=== PATIENT | female | born 1985 | race Caucasian/White ===

== ENCOUNTER 2018-06-23 16:55 | Emergency (ER) | payer OTHER ==
[~2018-06-23] VITALS: Ht 162.6 cm; Wt 89.8 kg
[2018-06-23] MEDS ORDERED: COMBIVENT RESPIM4 GM INH (17:10)
[2018-06-23] MEDS ORDERED: XARELTO20 MG PO (17:10)
[2018-06-23] MEDS ORDERED: BUSP10 PO (17:10)
[2018-06-23] MEDS ORDERED: TRAZ50 PO (17:11)
[2018-06-23] MEDS ORDERED: CETI5 PO (17:11)
[2018-06-23] MEDS ORDERED: PENVK500 PO (17:40)
== END 2018-06-23 17:54 | disposition home or self-care (01) ==
LOC: ER 16:55
DX: K04.7 Periapical abscess without sinus (principal); Z88.1 Allergy status to other antibiotic agents; Z79.899 Other long term (current) drug therapy
CPT/HCPCS: 64400; 99282-25

== ENCOUNTER 2020-05-24 10:28 | Emergency (ER) | payer OTHER ==
[~2020-05-24] VITALS: Ht 162.6 cm; Wt 89.8 kg
[~2020-05-24 10:28] MED LIST: BUSP10 PO; CETI5 PO; COMBIVENT RESPIM4 GM INH; PENVK500 PO; TRAZ50 PO; XARELTO20 MG PO
[2020-05-24 11:26] LABS: BASOPHILS ABSOLUTE AUTO 0.03 K/mm3 (0.00-0.23); BASOPHILS PERCENT AUTO 0 % (0-2); EOSINOPHILS ABSOLUTE AUTO 0.15 K/mm3 (0.00-0.68); EOSINOPHILS PERCENT AUTO 1 % (0-6); Hematocrit 40.8 % (33.0-51.0); IMMATURE GRAN PERCENT AUTO 1 % (0-1); LYMPHOCYTES ABSOLUTE AUTO 0.96 K/mm3 (0.84-5.20); LYMPHOCYTES PERCENT AUTO 5 % (21-46); MONOCYTES ABSOLUTE AUTO 1.96 K/mm3 (0.16-1.47); MONOCYTES PERCENT AUTO 11 % (4-13); Mean Corpuscular HGB 26.6 pg (26.0-34.0); Mean Corpuscular HGB Conc 31.9 g/dL (31.5-36.5); Mean Corpuscular Volume 83 fL (80-100); Mean Platelet Volume 9.3 fL (9.1-12.4); NEUTROPHILS ABSOLUTE AUTO 15.29 K/mm3 (1.96-9.15); NEUTROPHILS PERCENT AUTO 83 % (41-73); Platelet Count 300 K/mm3 (150-400); RDW Coefficient Variation 12.6 % (11.7-14.2); RDW Standard Deviation 38.3 fL (35.1-46.3); Red Blood Cell Count 4.89 M/mm3 (3.80-5.20); White Blood Cell Count 18.49 K/mm3 (4.00-11.30)
[2020-05-24 11:53] LABS: Alanine Aminotransfer (ALT/SGP 83 U/L (12-78); Albumin, Blood 2.9 g/dL (3.4-5.0); Albumin/Globulin Ratio 0.7 (0.8-1.8); Alk Phos 128 U/L (50-136); Anion Gap 9 mmol/L (6-16); Aspartate Aminotrans (AST/SGOT 50 U/L (12-37); Bilirubin, Total 0.5 mg/dL (0.1-1.0); Blood Urea Nitrogen 12 mg/dL (8-24); Bun/Creatinine Ratio 18.3 (12.0-20.0); CO2, Blood 23 mmol/L (21-32); Calcium, Blood 8.8 mg/dL (8.5-10.1); Chloride, Blood 103 mmol/L (98-108); Creatinine, Blood 0.65 mg/dL (0.40-1.00); Globulin, Blood 4.3 g/dL (2.2-4.0); Glomerular Filtration Rate >60 (60-); Glucose, Blood 132 mg/dL (70-99); Potassium, Blood 3.7 mmol/L (3.5-5.5); Sodium, Blood 135 mmol/L (136-145); Total Protein, Blood 7.2 g/dL (6.4-8.2)
[2020-05-24 12:06] LABS: Source, Urine Clean Catch
[2020-05-24 12:10] LABS: Appearance, Urine Hazy (Clear); Bilirubin, Urine Neg (Neg); Blood, Urine 2+ (Neg); Color, Urine Yellow (P-Yellow); Glucose Qualitative, Urine Neg (Neg); Ketones, Urine Neg (Neg); Leukocyte Esterase, Urine 3+ (Neg); Nitrite, Urine Pos (Neg); Protein, Urine Neg (Neg); Urobilinogen, Urine NORM (Normal)
[2020-05-24 12:35] LABS: White Blood Cells, Urine 50-100 /hpf (0-5)
[2020-05-24 12:36] LABS: Bacteria Many /hpf; Squamous Epithelial Cells Few /hpf (Few)
[2020-05-24] MEDS ORDERED: OXYC5 PO (12:49)
[2020-05-24] MEDS ORDERED: Bactrim Ds Tab1 EACH PO (12:49)
== END 2020-05-24 13:02 | disposition home or self-care (01) ==
LOC: ER 10:28
PROVIDERS: Emergency Medicine
DX: N12 Tubulo-interstitial nephritis, not specified as acute or chronic (principal); Z88.5 Allergy status to narcotic agent; Z88.1 Allergy status to other antibiotic agents; Z88.8 Allergy status to other drugs, medicaments and biological substances
CPT/HCPCS: 36415; 80053; 81001; 81025; 85025; 87077; 87086; 87186; 99283; A9270-GY

== ENCOUNTER 2023-05-11 17:50 | Emergency (ER) | payer OTHER ==
[~2023-05-11] VITALS: Ht 162.6 cm; Wt 86.2 kg
[~2023-05-11 17:50] MED LIST changes: +Bactrim Ds Tab1 EACH PO; +OXYC5 PO
[2023-05-11 18:35] VITALS: BP 139/88
== END 2023-05-11 20:41 | disposition home or self-care (01) ==
LOC: ER 17:50
DX: J45.909 Unspecified asthma, uncomplicated (principal); R60.0 Localized edema; M79.89 Other specified soft tissue disorders; Z86.711 Personal history of pulmonary embolism; Z86.718 Personal history of other venous thrombosis and embolism; Z88.8 Allergy status to other drugs, medicaments and biological substances; Z88.5 Allergy status to narcotic agent; Z88.1 Allergy status to other antibiotic agents; Z88.7 Allergy status to serum and vaccine; Z79.01 Long term (current) use of anticoagulants; Z79.899 Other long term (current) drug therapy
CPT/HCPCS: 93971; 99283-25; A9270

== ENCOUNTER 2023-08-19 09:10 | Emergency (ER) | payer OTHER ==
[~2023-08-19] VITALS: Ht 167.6 cm; Wt 72.6 kg
[2023-08-19] MEDS ORDERED: CEPH500 PO (12:29)
[2023-08-19] MEDS ORDERED: OXYC5 PO (12:29)
[2023-08-20 12:44] VITALS: BP 131/87
== END 2023-08-19 12:55 | disposition home or self-care (01) ==
LOC: ER 09:10
DX: S54.02XA Injury of ulnar nerve at forearm level, left arm, initial encounter (principal); S56.922A Laceration of unspecified muscles, fascia and tendons at forearm level, left arm, initial encounter; W26.0XXA Contact with knife, initial encounter; Z88.8 Allergy status to other drugs, medicaments and biological substances; Z88.1 Allergy status to other antibiotic agents; Z88.5 Allergy status to narcotic agent; Z88.7 Allergy status to serum and vaccine; Z79.899 Other long term (current) drug therapy; J45.909 Unspecified asthma, uncomplicated
CPT/HCPCS: 12004; 96372-59; 96374-59; 99283-25; A9270; J0690; J1885; J3010

== ENCOUNTER 2023-11-07 10:54 | Emergency (ER) | payer OTHER ==
[~2023-11-07] VITALS: Ht 165.1 cm; Wt 65.8 kg
[~2023-11-07 10:54] MED LIST changes: +CEPH500 PO
[2023-11-07 11:35] VITALS: BP 151/102
[2023-11-07] MEDS ORDERED: PENVK500 PO (11:38)
== END 2023-11-07 11:39 | disposition home or self-care (01) ==
LOC: ER 10:54
DX: K04.7 Periapical abscess without sinus (principal); Z88.1 Allergy status to other antibiotic agents; Z88.5 Allergy status to narcotic agent; Z88.7 Allergy status to serum and vaccine; Z79.01 Long term (current) use of anticoagulants; Z79.899 Other long term (current) drug therapy
CPT/HCPCS: 99282

== ENCOUNTER 2023-11-15 20:56 | Emergency (ER) | payer OTHER ==
[~2023-11-15] VITALS: Ht 162.6 cm; Wt 83.9 kg
[2023-11-15 21:01] VITALS: BP 134/86
== END 2023-11-15 21:45 | disposition home or self-care (01) ==
LOC: ER 20:56
DX: L23.7 Allergic contact dermatitis due to plants, except food (principal); J45.909 Unspecified asthma, uncomplicated; Z88.1 Allergy status to other antibiotic agents; Z88.5 Allergy status to narcotic agent; Z88.7 Allergy status to serum and vaccine; Z79.01 Long term (current) use of anticoagulants; Z79.899 Other long term (current) drug therapy
CPT/HCPCS: 96372; 99282-25; J3301

== ENCOUNTER 2024-04-29 05:24 | Emergency (ER) | payer OTHER ==
[~2024-04-29] VITALS: Ht 162.6 cm; Wt 82.5 kg
[~2024-04-29 05:24] MED LIST changes: +KETO10 PO; +SULTRIDS PO
[2024-04-29] MEDS ORDERED: ALBU90OI INH (05:56)
[2024-04-29] MEDS ORDERED: SULTRIDS PO (07:05)
[2024-04-29] MEDS ORDERED: Trimethoprim/Sulfamethoxazole DS Tab PO ONE (07:05)
[2024-04-29] MEDS ORDERED: PRED20 PO (07:05)
[2024-04-29] MEDS ORDERED: PredniSONE 20 MG Tab PO ONE (07:05)
[2024-04-29 07:35] VITALS: BP 130/79
== END 2024-04-29 07:25 | disposition home or self-care (01) ==
LOC: ER 05:24
DX: L03.115 Cellulitis of right lower limb (principal); B95.8 Unspecified staphylococcus as the cause of diseases classified elsewhere; L25.5 Unspecified contact dermatitis due to plants, except food; J45.909 Unspecified asthma, uncomplicated; Z88.1 Allergy status to other antibiotic agents; Z88.5 Allergy status to narcotic agent; Z88.7 Allergy status to serum and vaccine; Z79.899 Other long term (current) drug therapy
CPT/HCPCS: 87070; 87077; 87147; 87186; 87205; 99282; A9270; J7512

== ENCOUNTER 2024-08-23 02:24 | Emergency (ER) | payer OTHER ==
[~2024-08-23] VITALS: Ht 162.6 cm; Wt 78.0 kg
[~2024-08-23 02:24] MED LIST changes: +ALBU90OI INH; +PRED20 PO
[2024-08-23 02:42] VITALS: BP 152/75
[2024-08-23 03:05] LABS: Source, Urine Clean Catch
[2024-08-23 03:19] LABS: Bilirubin, Urine Neg (Neg); Blood, Urine 1+ (Neg); Glucose Qualitative, Urine Neg (Neg); Ketones, Urine Neg (Neg); Leukocyte Esterase, Urine 2+ (Neg); Nitrite, Urine Neg (Neg); Protein, Urine 1+ (Neg); Specific Gravity, Urine 1.025 (1.003-1.022); Urobilinogen, Urine NORM (Normal)
[2024-08-23 03:49] LABS: Appearance, Urine Hazy (Clear); Color, Urine Yellow (P-Yellow)
[2024-08-23 03:50] LABS: Bacteria Mod /hpf; Red Blood Cells, Urine 0-2 /hpf (0-2); Squamous Epithelial Cells Mod /hpf (Few)
[2024-08-23] MEDS ORDERED: Nitrofurantoin/Nitrofuran Mac 100 MG Cap PO ONE (04:25)
[2024-08-23] MEDS ORDERED: PredniSONE 20 MG Tab PO ONE (04:25)
[2024-08-23] MEDS ORDERED: Prednisone10 MG PO (04:29)
[2024-08-23] MEDS ORDERED: NITR100CA PO (04:29)
[2024-08-23] MEDS ORDERED: Phenazopyridine HCl 100 MG Tab PO ONE (04:30)
== END 2024-08-23 04:40 | disposition home or self-care (01) ==
LOC: ER 02:24
PROVIDERS: Emergency Medicine
DX: N39.0 Urinary tract infection, site not specified (principal); L23.7 Allergic contact dermatitis due to plants, except food; J45.909 Unspecified asthma, uncomplicated; Z79.52 Long term (current) use of systemic steroids; Z79.899 Other long term (current) drug therapy; Z88.5 Allergy status to narcotic agent; Z88.7 Allergy status to serum and vaccine
CPT/HCPCS: 81001; 87077; 87086; 87186; 99283; A9270; J7512

== ENCOUNTER 2024-09-05 23:56 | Emergency (ER) | payer OTHER ==
[~2024-09-05] VITALS: Ht 162.6 cm; Wt 80.7 kg
[~2024-09-05 23:56] MED LIST changes: +NITR100CA PO; +Prednisone10 MG PO
[2024-09-06 00:07] VITALS: BP 141/69
[2024-09-06] MEDS ORDERED: Bactrim Ds Tab1 EACH PO (01:14)
[2024-09-06] MEDS ORDERED: Trimethoprim/Sulfamethoxazole DS Tab PO ONE (01:15)
== END 2024-09-06 01:18 | disposition home or self-care (01) ==
LOC: ER 23:56
DX: L73.9 Follicular disorder, unspecified (principal); J45.909 Unspecified asthma, uncomplicated; Z79.52 Long term (current) use of systemic steroids; Z79.899 Other long term (current) drug therapy; Z88.1 Allergy status to other antibiotic agents; Z88.5 Allergy status to narcotic agent; Z88.7 Allergy status to serum and vaccine
CPT/HCPCS: 99282; A9270

== ENCOUNTER 2024-09-10 00:34 | Emergency (ER) | payer OTHER ==
[~2024-09-10] VITALS: Ht 162.6 cm; Wt 80.7 kg
[2024-09-10 00:46] VITALS: BP 176/80
[2024-09-10] MEDS ORDERED: Trimethoprim/Sulfamethoxazole DS Tab PO ONE (01:40)
[2024-09-10] MEDS ORDERED: Bactrim Ds Tab1 EACH PO (01:42)
[2024-09-10] MEDS ORDERED: HYDROcodone 5-APAP 325 TAB PO ONE (01:45)
== END 2024-09-10 02:04 | disposition home or self-care (01) ==
LOC: ER 00:34
DX: L02.31 Cutaneous abscess of buttock (principal); J45.909 Unspecified asthma, uncomplicated; Z79.52 Long term (current) use of systemic steroids; Z79.899 Other long term (current) drug therapy; Z88.1 Allergy status to other antibiotic agents; Z88.5 Allergy status to narcotic agent; Z88.7 Allergy status to serum and vaccine
CPT/HCPCS: 10060; 99282-25; A9270

== ENCOUNTER → 2024-09-11 | Outpatient (CLI) | payer OTHER | LOC: LAB 15:43 → LAB SHORT 15:43 | DX: L02.91 Cutaneous abscess, unspecified (principal) | CPT/HCPCS: 87070; 87075; 87077; 87186; 87205 ==

== ENCOUNTER 2024-10-27 16:45 | Emergency (ER) | payer OTHER ==
[~2024-10-27] VITALS: Ht 162.6 cm; Wt 83.9 kg
[2024-10-27 16:52] VITALS: BP 156/92
[2024-10-27] MEDS ORDERED: Amoxicillin500 MG PO (16:53)
== END 2024-10-27 16:55 | disposition home or self-care (01) ==
LOC: ER 16:45
DX: K04.7 Periapical abscess without sinus (principal); J45.909 Unspecified asthma, uncomplicated; Z79.52 Long term (current) use of systemic steroids; Z79.899 Other long term (current) drug therapy; Z88.5 Allergy status to narcotic agent; Z88.7 Allergy status to serum and vaccine
CPT/HCPCS: 99282

== ENCOUNTER 2024-11-02 15:26 | Emergency (ER) | payer OTHER ==
[~2024-11-02] VITALS: Ht 162.6 cm; Wt 85.7 kg
[~2024-11-02 15:26] MED LIST changes: +Amoxicillin500 MG PO
[2024-11-02 15:36] VITALS: BP 126/100
[2024-11-02 15:59] LABS: BASOPHILS ABSOLUTE AUTO 0.01 K/mm3 (0.00-0.23); BASOPHILS PERCENT AUTO 0 % (0-2); EOSINOPHILS PERCENT AUTO 3 % (0-6); Hematocrit 42.6 % (33.0-51.0); Hemoglobin 13.2 g/dL (11.5-16.0); IMMATURE GRAN ABSOLUTE AUTO 0.03 K/mm3 (0.00-0.10); IMMATURE GRAN PERCENT AUTO 0 % (0-1); LYMPHOCYTES ABSOLUTE AUTO 1.69 K/mm3 (0.84-5.20); LYMPHOCYTES PERCENT AUTO 24 % (21-46); MONOCYTES ABSOLUTE AUTO 0.72 K/mm3 (0.16-1.47); MONOCYTES PERCENT AUTO 10 % (4-13); Mean Corpuscular Volume 81 fL (80-100); Mean Platelet Volume 8.9 fL (9.1-12.4); NEUTROPHILS ABSOLUTE AUTO 4.41 K/mm3 (1.96-9.15); NEUTROPHILS PERCENT AUTO 63 % (41-73); Platelet Count 301 K/mm3 (150-400); RDW Coefficient Variation 14.8 % (11.7-14.2); RDW Standard Deviation 43.3 fL (35.1-46.3); Red Blood Cell Count 5.28 M/mm3 (3.80-5.20); White Blood Cell Count 7.06 K/mm3 (4.00-11.30)
[2024-11-02 16:10] LABS: CORONAVIRUS COVID-19 AG Negative (NEGATIVE); INFLUENZA A AG Negative (NEGATIVE); INFLUENZA B AG Negative (NEGATIVE)
[2024-11-02 16:15] LABS: Albumin, Blood 2.9 g/dL (3.4-5.0); Albumin/Globulin Ratio 0.7 (0.8-1.8); Bilirubin, Total 0.2 mg/dL (0.1-1.0); Bun/Creatinine Ratio 23.7 (12.0-20.0); Calcium, Blood 8.3 mg/dL (8.5-10.1); Creatinine, Blood 0.76 mg/dL (0.40-1.00); Globulin, Blood 3.9 g/dL (2.2-4.0); Potassium, Blood 4.1 mmol/L (3.5-5.5); Total Protein, Blood 6.8 g/dL (6.4-8.2)
[2024-11-02] MEDS ORDERED: Albuterol 2.5 MG/3 ML VIAL INH SCH (19:30)
== END 2024-11-02 20:09 | disposition home or self-care (01) ==
LOC: ER 15:26
PROVIDERS: Student in an Organized Health Care Education/Training Program
DX: J06.9 Acute upper respiratory infection, unspecified (principal); J45.909 Unspecified asthma, uncomplicated; Z86.711 Personal history of pulmonary embolism; Z88.1 Allergy status to other antibiotic agents; Z88.5 Allergy status to narcotic agent; Z88.7 Allergy status to serum and vaccine; Z79.52 Long term (current) use of systemic steroids; Z79.899 Other long term (current) drug therapy
CPT/HCPCS: 71046; 80053; 84145; 85025; 87428-QW; 94640; 94664; 99284-25

== ENCOUNTER 2024-11-05 00:42 | Emergency (ER) | payer OTHER ==
[~2024-11-05] VITALS: Ht 162.6 cm; Wt 85.7 kg
[2024-11-05 01:53] LABS: Albumin, Blood 2.5 g/dL (3.4-5.0); Albumin/Globulin Ratio 0.7 (0.8-1.8); Bilirubin, Total 0.3 mg/dL (0.1-1.0); Bun/Creatinine Ratio 25.2 (12.0-20.0); Calcium, Blood 8.4 mg/dL (8.5-10.1); Creatinine, Blood 0.6 mg/dL (0.40-1.00); Globulin, Blood 3.6 g/dL (2.2-4.0); Potassium, Blood 4.5 mmol/L (3.5-5.5); Total Protein, Blood 6.1 g/dL (6.4-8.2)
[2024-11-05 02:03] LABS: BASOPHILS ABSOLUTE AUTO 0.02 K/mm3 (0.00-0.23); BASOPHILS PERCENT AUTO 0 % (0-2); EOSINOPHILS PERCENT AUTO 3 % (0-6); Hemoglobin 13.3 g/dL (11.5-16.0); IMMATURE GRAN ABSOLUTE AUTO 0.05 K/mm3 (0.00-0.10); IMMATURE GRAN PERCENT AUTO 1 % (0-1); LYMPHOCYTES ABSOLUTE AUTO 2.43 K/mm3 (0.84-5.20); LYMPHOCYTES PERCENT AUTO 25 % (21-46); MONOCYTES ABSOLUTE AUTO 0.72 K/mm3 (0.16-1.47); MONOCYTES PERCENT AUTO 7 % (4-13); Mean Corpuscular HGB 25.5 pg (26.0-34.0); Mean Corpuscular HGB Conc 30.9 g/dL (31.5-36.5); Mean Corpuscular Volume 82 fL (80-100); Mean Platelet Volume 9.7 fL (9.1-12.4); NEUTROPHILS ABSOLUTE AUTO 6.29 K/mm3 (1.96-9.15); NEUTROPHILS PERCENT AUTO 64 % (41-73); Platelet Count 332 K/mm3 (150-400); RDW Coefficient Variation 15.2 % (11.7-14.2); RDW Standard Deviation 45.8 fL (35.1-46.3); Red Blood Cell Count 5.22 M/mm3 (3.80-5.20); White Blood Cell Count 9.81 K/mm3 (4.00-11.30)
[2024-11-05 04:31] VITALS: BP 117/63
== END 2024-11-05 06:34 | disposition left against medical advice (07) ==
LOC: ER 00:42
PROVIDERS: Emergency Medicine
DX: R06.02 Shortness of breath (principal); J45.909 Unspecified asthma, uncomplicated; Z79.52 Long term (current) use of systemic steroids; Z79.899 Other long term (current) drug therapy; Z88.1 Allergy status to other antibiotic agents; Z88.5 Allergy status to narcotic agent; Z88.7 Allergy status to serum and vaccine
CPT/HCPCS: 36415; 71260; 80053; 84484; 84703; 85025; 93005; 93010; 99285-25; Q9967

== ENCOUNTER 2025-05-21 14:11 | Inpatient (IN) | payer OTHER ==
[~2025-05-21] VITALS: Ht 162.6 cm; Wt 89.9 kg
[~2025-05-21 14:11] MED LIST changes: +FAMO20 PO; +IBUP400 PO
[2025-05-21 15:10] LABS: BASOPHILS ABSOLUTE AUTO 0.03 K/mm3 (0.00-0.23); BASOPHILS PERCENT AUTO 0 % (0-2); EOSINOPHILS ABSOLUTE AUTO 0.38 K/mm3 (0.00-0.68); EOSINOPHILS PERCENT AUTO 2 % (0-6); Hematocrit 35.4 % (33.0-51.0); Hemoglobin 11.2 g/dL (11.5-16.0); IMMATURE GRAN ABSOLUTE AUTO 0.06 K/mm3 (0.00-0.10); IMMATURE GRAN PERCENT AUTO 0 % (0-1); LYMPHOCYTES ABSOLUTE AUTO 1.76 K/mm3 (0.84-5.20); LYMPHOCYTES PERCENT AUTO 11 % (21-46); MONOCYTES ABSOLUTE AUTO 0.97 K/mm3 (0.16-1.47); MONOCYTES PERCENT AUTO 6 % (4-13); Mean Corpuscular HGB Conc 31.6 g/dL (31.5-36.5); Mean Corpuscular Volume 79 fL (80-100); NEUTROPHILS ABSOLUTE AUTO 13.63 K/mm3 (1.96-9.15); NEUTROPHILS PERCENT AUTO 81 % (41-73); NRBC ABSOLUTE 0.00 K/mm3 (0.00-0.02); NRBC Auto 0.0 /100 WBC (0.0-0.2); Platelet Count 369 K/mm3 (150-400); RDW Coefficient Variation 14.0 % (11.7-14.2); RDW Standard Deviation 40.4 fL (35.1-46.3)
[2025-05-21] MEDS ORDERED: NS 1,000 ML IV SCH (15:30)
[2025-05-21] MEDS ORDERED: Ketorolac Tromethamine 15mg Vial IV ONE (15:30)
[2025-05-21] MEDS ORDERED: Clindamycin 900mg in D5W 50ML 50 ML IV ONE (15:30)
[2025-05-21 16:10] LABS: Alanine Aminotransfer (ALT/SGP 19.0 U/L (12-78); Albumin, Blood 3.3 g/dL (3.4-5.0); Albumin/Globulin Ratio 0.8 (0.8-1.8); Anion Gap 6.0 mmol/L (3-11); Aspartate Aminotrans (AST/SGOT 14.0 U/L (12-37); Bilirubin, Total 0.4 mg/dL (0.1-1.0); Blood Urea Nitrogen 18.0 mg/dL (8-24); CO2, Blood 28.0 mmol/L (21-32); Calcium, Blood 8.8 mg/dL (8.5-10.1); Chloride, Blood 105.0 mmol/L (98-108); Creatinine, Blood 0.87 mg/dL (0.40-1.00); Globulin, Blood 4.3 g/dL (2.2-4.0); Glucose, Blood 96.0 mg/dL (70-99); Potassium, Blood 4.0 mmol/L (3.5-5.5); Sodium, Blood 135.0 mmol/L (136-145); Total Protein, Blood 7.6 g/dL (6.4-8.2)
[2025-05-21 18:01] VITALS: BP 126/80
[2025-05-21 19:18] VITALS: BP 128/64
[2025-05-21] MEDS ORDERED: Lactobacil 2-S.Thermo-Bifido 1 1 Cap PO SCH (21:00)
[2025-05-21] MEDS ORDERED: NS 250 ML IV PRN (21:30)
[2025-05-22] VITALS (7 sets, daily range): BP systolic 94–127; BP diastolic 58–81
[2025-05-22] MEDS ORDERED: Clindamycin 900mg in D5W 50ML 50 ML IV SCH
[2025-05-22] MEDS ORDERED: Ketorolac Tromethamine 15mg Vial IV ONE (03:50)
[2025-05-22 04:42] LABS: Hematocrit 34.3 % (33.0-51.0); Hemoglobin 10.9 g/dL (11.5-16.0); Mean Corpuscular HGB Conc 31.8 g/dL (31.5-36.5); Mean Corpuscular Volume 79 fL (80-100); NRBC ABSOLUTE 0.00 K/mm3 (0.00-0.02); NRBC Auto 0.0 /100 WBC (0.0-0.2); Platelet Count 349 K/mm3 (150-400); RDW Coefficient Variation 14.1 % (11.7-14.2); RDW Standard Deviation 40.8 fL (35.1-46.3)
[2025-05-22 05:08] LABS: Anion Gap 7.0 mmol/L (3-11); Blood Urea Nitrogen 19.0 mg/dL (8-24); CO2, Blood 24.0 mmol/L (21-32); Calcium, Blood 8.1 mg/dL (8.5-10.1); Chloride, Blood 109.0 mmol/L (98-108); Creatinine, Blood 0.77 mg/dL (0.40-1.00); Glucose, Blood 107.0 mg/dL (70-99); Potassium, Blood 4.1 mmol/L (3.5-5.5); Sodium, Blood 136.0 mmol/L (136-145)
--- NOTE | 2025-05-22 05:18 | NUR ---
SHIFT SUMMARY NOC PT A/O X 4. PLEASANT AND COOPERATIVE WITH CARE. VSS. LLE IS RED AND HOT TO THE TOUCH WITH BORDER DRAWN AROUND CELLULITIS. PT RECEIVED SCHEDULED DOSE OF IV ABX, BUT HAD C/O OF PAIN IN LLE AND MEDICATED PER EMAR. PT PARTNER STAYED NIGHT WITH PT. PT ON TELE NSR IN 80'S. PT CURRENTLY RESTING WITH BED IN LOWEST POSITION, AND CALL LIGHT WITHIN REACH.
[2025-05-22] MEDS ORDERED: Enoxaparin 40 MG/0.4 ML SYR SC SCH (09:00)
--- NOTE | 2025-05-22 18:14 | NUR ---
SHIFT SUMMARY PT A&OX4, VSS, AMB IND, TOLERATING PO, VOIDING, AND DENIED PAIN. IV ABX INFUSED PER ORDER. NO ACUTE CHANGES. CALL LIGHT WITHIN REACH AND PT ABLE TO MAKE NEEDS KNOWN.
[2025-05-23 00:13] VITALS: BP 112/59
[2025-05-23 04:57] VITALS: BP 104/66
--- NOTE | 2025-05-23 05:28 | NUR ---
SHIFT SUMMARY NOC PT A/O X 4. PLEASANT AND COOPERATIVE WITH CARE. VSS. PT LLE PAIN BEING MANAGED PER EMAR, WELL IV ABX. PT LLE STILL RED AND HOT TO TOUCH, BUT IMPROVEMENT NOTED. PT ON TELE SINUS RHYTHM IN 80'S WITH RHYTHM STRIP REVIEWED. PT CURRENTLY RESTING WITH BED IN LOWEST POSITION, AND CALL LIGHT WITHIN REACH.
[2025-05-23 07:10] VITALS: BP 123/80
[2025-05-23] MEDS ORDERED: Vancomycin (Pharmacy Consult) IV SCH (10:00)
[2025-05-23 15:10] VITALS: BP 119/69
--- NOTE | 2025-05-23 18:12 | NUR ---
NO ACUTE CHANGES, SHOWRED TODAY, MAKES NEEDS KNOWN, ANTIBIOTICS CHANGED TO VANCO, LABS TO BE DRAWN IN AM, INDEPEDANT IN ROOM, INFECTION SPREAD EDUCATED WITH PATIENT AND BOYFRIEND, CALL LIGHT WITH IN REACH, POSSIBLE HOME TOMORROW, WILL RELAY TO PM RN
[2025-05-23 19:05] VITALS: BP 111/59
--- NOTE | 2025-05-24 04:32 | NUR ---
SHIFT SUMM: PT HAS BEEN RELAXING AND RESTING MOST OF SHIFT. PAIN HAS BEEN MEDICATED FOR PAIN/ LOW GRADE FEVER WITH TYLENOL PER EMAR. PT HAS HAD VANCO X2 THIS SHIFT (SEE EMAR). 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 PT HAS CALL LIGHT IN REACH AND BED LOW AND LOCKED FOR SAFETY.
[2025-05-24 05:06] VITALS: BP 127/57
[2025-05-24 05:34] LABS: Hematocrit 35.1 % (33.0-51.0); Hemoglobin 11.2 g/dL (11.5-16.0); Mean Corpuscular HGB Conc 31.9 g/dL (31.5-36.5); Mean Corpuscular Volume 80 fL (80-100); NRBC ABSOLUTE 0.00 K/mm3 (0.00-0.02); NRBC Auto 0.0 /100 WBC (0.0-0.2); Platelet Count 390 K/mm3 (150-400); RDW Coefficient Variation 14.0 % (11.7-14.2); RDW Standard Deviation 40.7 fL (35.1-46.3)
[2025-05-24 05:58] LABS: Anion Gap 6.0 mmol/L (3-11); Blood Urea Nitrogen 13.0 mg/dL (8-24); CO2, Blood 27.0 mmol/L (21-32); Calcium, Blood 8.3 mg/dL (8.5-10.1); Chloride, Blood 107.0 mmol/L (98-108); Creatinine, Blood 0.79 mg/dL (0.40-1.00); Glucose, Blood 101.0 mg/dL (70-99); Potassium, Blood 4.0 mmol/L (3.5-5.5); Sodium, Blood 136.0 mmol/L (136-145)
[2025-05-24 07:34] VITALS: BP 111/78
--- NOTE | 2025-05-24 13:46 | NUR ---
PATIENT LEFT AMA, BOYFRIEND PRESENT, PATIETN EDUCATRED ON NEED FOR TREATMENT AND RISKS OF AMA NO TREATMENT, BOTH STATED UNDERSTANDING, DENIED FURTHER QUESTIONS
== END 2025-05-24 13:22 | disposition left against medical advice (07) | DRG 872 ==
LOC: ER 14:11 → MEDS 16:34
PROVIDERS: Student in an Organized Health Care Education/Training Program; ADMIT Internal Medicine
DX: A41.9 Sepsis, unspecified organism (principal); L03.116 Cellulitis of left lower limb; L02.416 Cutaneous abscess of left lower limb; J45.909 Unspecified asthma, uncomplicated; Z86.711 Personal history of pulmonary embolism; Z87.440 Personal history of urinary (tract) infections; Z53.29 Procedure and treatment not carried out because of patient's decision for other reasons; Z86.19 Personal history of other infectious and parasitic diseases; Z88.5 Allergy status to narcotic agent; Z88.8 Allergy status to other drugs, medicaments and biological substances; Z88.7 Allergy status to serum and vaccine; Z79.1 Long term (current) use of non-steroidal anti-inflammatories (NSAID); Z79.899 Other long term (current) drug therapy
CPT/HCPCS: 36415; 73590; 80048; 80053; 83605; 85025; 85027; 87040; 96365; 96375; 99284-25; A9270; J1650; J1885; J3373; J7030; J7040; J7050

== ENCOUNTER 2025-09-03 04:52 | Emergency (ER) | payer OTHER ==
[~2025-09-03] VITALS: Ht 165.1 cm; Wt 82.5 kg
[2025-09-03 05:08] VITALS: BP 140/90
[2025-09-03] MEDS ORDERED: MOTRIN IB200 MG PO (05:29)
[2025-09-03] MEDS ORDERED: Robaxin750 MG PO (23:10)
[2025-09-03] MEDS ORDERED: CEPH500 PO (23:10)
== END 2025-09-03 06:20 | disposition home or self-care (01) ==
LOC: ER 04:52
DX: M65.4 Radial styloid tenosynovitis [de Quervain] (principal); Z88.5 Allergy status to narcotic agent; Z88.7 Allergy status to serum and vaccine; Z79.899 Other long term (current) drug therapy; J45.909 Unspecified asthma, uncomplicated
CPT/HCPCS: 99283

== ENCOUNTER 2025-09-03 20:10 | Emergency (ER) | payer OTHER ==
[~2025-09-03] VITALS: Ht 165.1 cm; Wt 82.5 kg
[~2025-09-03 20:10] MED LIST changes: +MOTRIN IB200 MG PO
[2025-09-03 20:12] VITALS: BP 143/94
[2025-09-03 20:34] LABS: BASOPHILS ABSOLUTE AUTO 0.03 K/mm3 (0.00-0.23); BASOPHILS PERCENT AUTO 0 % (0-2); EOSINOPHILS ABSOLUTE AUTO 0.20 K/mm3 (0.00-0.68); EOSINOPHILS PERCENT AUTO 2 % (0-6); Hematocrit 35.5 % (33.0-51.0); Hemoglobin 11.1 g/dL (11.5-16.0); IMMATURE GRAN ABSOLUTE AUTO 0.04 K/mm3 (0.00-0.10); IMMATURE GRAN PERCENT AUTO 0 % (0-1); LYMPHOCYTES ABSOLUTE AUTO 1.66 K/mm3 (0.84-5.20); LYMPHOCYTES PERCENT AUTO 13 % (21-46); MONOCYTES ABSOLUTE AUTO 0.95 K/mm3 (0.16-1.47); MONOCYTES PERCENT AUTO 8 % (4-13); Mean Corpuscular HGB Conc 31.3 g/dL (31.5-36.5); Mean Corpuscular Volume 79 fL (80-100); NEUTROPHILS ABSOLUTE AUTO 9.73 K/mm3 (1.96-9.15); NEUTROPHILS PERCENT AUTO 77 % (41-73); NRBC ABSOLUTE 0.00 K/mm3 (0.00-0.02); NRBC Auto 0.0 /100 WBC (0.0-0.2); Platelet Count 358 K/mm3 (150-400); RDW Coefficient Variation 13.6 % (11.7-14.2); RDW Standard Deviation 38.8 fL (35.1-46.3)
[2025-09-03 21:10] LABS: Alanine Aminotransfer (ALT/SGP 21.0 U/L (12-78); Albumin, Blood 3.5 g/dL (3.4-5.0); Albumin/Globulin Ratio 0.9 (0.8-1.8); Anion Gap 9.0 mmol/L (3-11); Aspartate Aminotrans (AST/SGOT 13.0 U/L (12-37); Bilirubin, Total 0.6 mg/dL (0.1-1.0); Blood Urea Nitrogen 13.0 mg/dL (8-24); CO2, Blood 27.0 mmol/L (21-32); Calcium, Blood 8.9 mg/dL (8.5-10.1); Chloride, Blood 103.0 mmol/L (98-108); Creatinine, Blood 0.73 mg/dL (0.40-1.00); Globulin, Blood 4.0 g/dL (2.2-4.0); Glucose, Blood 109.0 mg/dL (70-99); Potassium, Blood 3.7 mmol/L (3.5-5.5); Sodium, Blood 135.0 mmol/L (136-145); Total Protein, Blood 7.5 g/dL (6.4-8.2)
[2025-09-03] MEDS ORDERED: Robaxin750 MG PO (23:10)
[2025-09-03] MEDS ORDERED: CEPH500 PO (23:10)
== END 2025-09-03 23:18 | disposition home or self-care (01) ==
LOC: ER 20:10
PROVIDERS: Student in an Organized Health Care Education/Training Program
DX: M65.4 Radial styloid tenosynovitis [de Quervain] (principal); L03.113 Cellulitis of right upper limb; J45.909 Unspecified asthma, uncomplicated; Z88.1 Allergy status to other antibiotic agents; Z88.5 Allergy status to narcotic agent; Z88.7 Allergy status to serum and vaccine
CPT/HCPCS: 73110; 80053; 83605; 85025; 99283-25; A9270